=== PATIENT | male | born 1990 | race Caucasian/White ===

== ENCOUNTER 2016-06-22 10:10 | Emergency (ER) | payer SELFPAY ==
[~2016-06-22] VITALS: Ht 175.3 cm; Wt 81.8 kg
[2016-06-22 12:30] VITALS: BP 119/69
== END 2016-06-22 12:58 | disposition home or self-care (01) ==
LOC: EMS 10:13
DX: S20.211A Contusion of right front wall of thorax, initial encounter (principal); X58.XXXA Exposure to other specified factors, initial encounter; Y93.39 Activity, other involving climbing, rappelling and jumping off; Y92.89 Other specified places as the place of occurrence of the external cause; Y99.8 Other external cause status
CPT/HCPCS: 99283